=== PATIENT | male | born 1985 | race Caucasian/White ===

== ENCOUNTER 2019-06-03 13:51 | Emergency (ER) | payer OTHER ==
[~2019-06-03] VITALS: Ht 203.2 cm; Wt 118.9 kg
[2019-06-03] MEDS ORDERED: diphenhydrAMINE INJ 50MG/ML VIAL (J1200) IV ONE (15:00)
[2019-06-03] MEDS ORDERED: METOCLOPRAMIDE INJ 10MG/2ML VIAL (J2765) IV ONE (15:00)
[2019-06-03] MEDS ORDERED: ACETAMINOPHEN 500 MG TAB PO ONE (15:00)
[2019-06-03] MEDS ORDERED: KETOROLAC 30 MG/ML VIAL (J1885) IM ONE (15:00)
[2019-06-03] MEDS ORDERED: NS 1,000 ML IV ONE (15:00)
[2019-06-03 16:30] VITALS: BP 128/64
[2019-06-03] MEDS ORDERED: ONDA4TAB6 PO (16:45)
== END 2019-06-03 17:02 | disposition home or self-care (01) ==
LOC: M ED 13:51
DX: G44.209 Tension-type headache, unspecified, not intractable (principal); F17.220 Nicotine dependence, chewing tobacco, uncomplicated; Z82.3 Family history of stroke
CPT/HCPCS: 96372; 96374; 96375; 99284; J1200; J1885; J2765